=== PATIENT | male | born 1945 | race Caucasian/White ===

== ENCOUNTER 2017-09-03 10:30 | Day surgery (SDC) | payer MEDICARE, MEDICAID ==
[~2017-09-03 10:30] MED LIST: Acetaminophen TAB* 325 MG PO PRN; Buffered Lidocaine 0.9% SYRIN* 5 ML/SYR SYRINGE INTRADERM ONE
[2017-09-03] MEDS ORDERED: Midazolam* 1 MG/ML 2 ML VIAL (2 MG) ONE ×2 (12:53→12:57)
[2017-09-03] MEDS ORDERED: Povidone Iodine 5% OPTH* 30 ML BTL ONE (13:43)
[2017-09-03] MEDS ORDERED: Neomycin/Polymy/Dex OPTH.SUSP* MAXITROL 0.1% 5 ML ONE (13:43)
[2017-09-03] MEDS ORDERED: acetaZOLAMIDE TAB* 250 MG ONE (13:43)
[2017-09-03] MEDS ORDERED: Ketorolac 0.5% OPHTH (NF) 0.5 % 5 ML BTL ONE (13:43)
[2017-09-03] MEDS ORDERED: Phenylephrine 2.5% OPTH.SOL* 2 ML BTL ONE (13:43)
[2017-09-03] MEDS ORDERED: Lidocaine 2% EPI 1:200000 MPF* 20 ML VIAL ONE (13:43)
[2017-09-03] MEDS ORDERED: Lidocaine 1% MPF* 2 ML VIAL ONE (13:43)
[2017-09-03] MEDS ORDERED: Cyclopentolate 1% OPTH.SOL* 2 ML BTL ONE (13:43)
[2017-09-03] MEDS ORDERED: Proparacaine 0.5% OPHTH.SOL* 15 ML BTL ONE (13:44)
[2017-09-03 13:49] VITALS: BP 143/63
--- NOTE | 2017-09-04 07:06 | OP ---
DATE OF OPERATION: 09/03/17 - [facility] DATE OF : 45 SURGEON: Geovani Guerrero M.D. PREOPERATIVE DIAGNOSIS: Cataract, left eye. POSTOPERATIVE DIAGNOSIS: Cataract, left eye. OPERATIVE PROCEDURE: Extracapsular cataract extraction with intraocular lens implant left eye. DESCRIPTION OF PROCEDURE: The patient was brought to the operating room after being given 1/2% Alcaine with epinephrine drops in the preoperative area. The eye was prepped and draped in the usual sterile fashion. Sterile drape and eyelid speculum were placed. Again, topical 1/2% Alcaine with epinephrine was given. A paracentesis incision was made at the 3 o'clock position with the No.75 blade. Clear cornea incision 2.2 x 2.2-mm was created at the 6 o'clock position starting at the anterior limbus using the 2.2-mm keratome. The anterior chamber was irrigated with 0.4 mL of 1% non-preservative intracameral lidocaine and filled with DisCoVisc. A capsulorrhexis was completed using the cystotome and the Utrata forceps. Hydrodissection was performed with balanced salt solution. The lens nucleus was removed with the Phacoemulsification handpiece without incident. Cortex was removed with the irrigation-aspiration handpiece. The capsular bag was re-inflated using DisCoVisc and an SN60WF 19.5 implant was inserted with the shooter. The pupil was only about 3 mm, so a Malyugin ring was used to dilate the pupil, removed after insertion of the lens. There was a nearly white cataract, so VisionBlue was used to staining anterior capsule prior to the capsulorrhexis. Of note, the patient has a pretty severe corneal opacities, so visualization was quite limited throughout the surgery. However, we proceeded slowly and carefully and I was able to do everything and verified that everything was perfect at the end of the case. The irrigation-aspiration handpiece was used to remove all residual DisCoVisc. The eye was refilled with balanced salt solution and the wound checked and found to be watertight. Topical Maxitrol drops were given. [id number]/[facility] #: [id number] [facility] CENTERCrispin
== END 2017-09-03 13:45 | disposition home or self-care (01) ==
LOC: OREAST 10:30
PROVIDERS: ATTEND Specialist
DX: H25.812 Combined forms of age-related cataract, left eye (principal); H40.1132 Primary open-angle glaucoma, bilateral, moderate stage; H35.3212 Exudative age-related macular degeneration, right eye, with inactive choroidal neovascularization; H18.5 Hereditary corneal dystrophies; E11.3293 Type 2 diabetes mellitus with mild nonproliferative diabetic retinopathy without macular edema, bilateral; Z79.84 Long term (current) use of oral hypoglycemic drugs; Z79.4 Long term (current) use of insulin; I12.9 Hypertensive chronic kidney disease with stage 1 through stage 4 chronic kidney disease, or unspecified chronic kidney disease; E03.9 Hypothyroidism, unspecified; J45.909 Unspecified asthma, uncomplicated; K21.9 Gastro-esophageal reflux disease without esophagitis; I25.10 Atherosclerotic heart disease of native coronary artery without angina pectoris; J44.9 Chronic obstructive pulmonary disease, unspecified; N18.9 Chronic kidney disease, unspecified; D64.9 Anemia, unspecified
CPT/HCPCS: A9270-GY; J2250; V2632